=== PATIENT | male | born 1955 | race Caucasian/White ===

== ENCOUNTER 2019-09-25 03:41 | Emergency (ER) | payer MEDICARE, SELFPAY ==
[2019-09-25 03:41] VITALS: BP 161/97; PULSE 73; RESP 18; TEMP 36.6; O2SAT 100
--- NOTE | 2019-09-25 03:58 | ED.GENADULT ---
HPI - General Adult General Chief complaint: Allergic Reaction Stated complaint: throught swelling Source: patient Mode of arrival: ambulatory History of Present Illness HPI narrative: Tarik is a very pleasant 64-year-old man that presented to the ER with tongue swelling. 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 Multiple times here he succumbed to the hospital to get IM steroids and Benadryl which has always worked in the past. Around 12 or 1 he started developing some tongue swelling and itching. He tried to take Benadryl at home but he could not take much because the swelling continued. He can't take Benadryl because of swollen tongue is not able to follow-up pills. He admits the dysphaga and some SOB from this but no chest pain, N/V/D, syncope or other symptoms. MD complaint: Tongue swelling Related Data Home Medications Medication Instructions Recorded Confirmed hydrochlorothiazide 12.5 mg PO DAILY 09/25/19 09/25/19 losartan 50 mg PO DAILY 09/25/19 09/25/19 Allergies Allergy/AdvReac Type Severity Reaction Status Date / Time amlodipine [Norvasc] Allergy Intermediate Unknown Verified 07/14/19 17:19 Penicillins Allergy Unknown Verified 07/14/19 17:19 Review of Systems Constitutional: Constitutional: Denies chills and Denies fever(s) Eyes: Eyes: Denies change in vision ENT: Denies vertigo and Denies dizziness Cardiovascular: Cardiovascular: Denies chest pain with activity, Denies syncope, Denies edema and Denies dyspnea on exertion Gastrointestinal: Gastrointestinal: Denies abdominal pain, Denies diarrhea, Denies nausea and Denies vomiting Genitourinary: Genitourinary: Denies dysuria Musculoskeletal: Musculoskeletal: Denies deformity Neurologic: Denies Normal hearing present, Denies behavioral changes, Denies confusion, Denies vertigo, Denies dizziness, Denies syncope and Denies loss of vision Psychiatric: Psychiatric: Denies anxiety, Denies behavioral changes, Denies confusion and Denies depression Endocrine: Endocrine: Reports no additional endocrine complaints Hematologic/Lymphatic: Hematologic/Lymphatic: Reports no additional hematologic/lymphatic complaints Allergic/Immunologic: Allergic/Immunologic: Reports no additional allergic/immunologic complaints PMFSH Family History Family History Father Hypertension Family history of chronic obstructive pulmonary disease Family history of emphysema Family history of heart disease in male family member before age 55 Mother Family history of malignant neoplasm Other Cerebrovascular accident Family history of allergic disorder Family history of kidney disease Social History Social History Smoking status: Never smoker Alcohol intake: never Exam Const: General: no acute distress and alert Orientation/consciousness: patient oriented x3 HENMT: Other: normocephalic, atraumatic, mild angioedema of the tongue that is symmetrical. Eyes: Conjunctivae: conjunctivae normal Pupils: Equal, round and reactive pupils present Neck: Neck: normal visual inspection Resp: Effort & Inspection: normal respiratory effort Auscultation: clear to auscultation bilaterally Cardio: Rate: regular rate Rhythm: regular rhythm Heart sounds: no murmurs GI: GI Palp: Yes Soft to palpation, No Tenderness to palpation present (GI) and No Guarding due to palpation present (GI) Skin: General skin exam: normal color Rashes: no rashes Other: no swelling in and Neuro: General: patient oriented x3 and moves all extremities Extrem: General: normal to inspection Psych: Mental Status: mental status grossly normal Course Course Emergency Course: Tarki was seen and evaluated. As his angioedema his previously responded to IM Solu-Medrol and Benadryl this was ordered. He reports he has done well without epinephrine pas
[2019-09-25] MEDS: methylPREDNISolone SOD SUCC 125 MG VIAL IM (04:11)
[2019-09-25 04:35] VITALS: PULSE 58; RESP 20; O2SAT 96
[2019-09-25 04:48] VITALS: PULSE 68; RESP 18; O2SAT 96
[2019-09-25 05:11] VITALS: BP 134/74; PULSE 61; RESP 20; O2SAT 98
[2019-09-25] MEDS: FAMOTIDINE 20 MG TABLET PO (05:25)
[2019-09-25 05:40] VITALS: BP 153/87; PULSE 56; RESP 20; O2SAT 98
== END 2019-09-25 05:46 | disposition home or self-care (01) ==
PROVIDERS: Emergency Provider Family Medicine; PCP Family Medicine
DX: T78.3XXA Angioneurotic edema, initial encounter (principal)
CPT/HCPCS: 96372; 99283; 99284; A9270; J1200; J2930

== ENCOUNTER 2020-03-01 09:17 | Outpatient (CLI) | payer MEDICARE, SELFPAY ==
[2020-03-01 09:30] LABS: Hematocrit 45.8 % (40.0-54.0); Hemoglobin 15.7 g/dL (14.0-18.0); Mean Corpuscular HGB Conc 34.3 g/dL (32.0-36.0); Mean Corpuscular Hemoglobin 29.4 pg (27.0-31.0); Mean Corpuscular Volume 85.8 fL (78.0-102.0); Platelet Count Result 353 K/mm3 (150-420); Red Blood Count 5.34 M/mm3 (4.70-6.10); Red Cell Distribution Width 12.7 % (11.6-14.4); White Blood Count 8.4 K/mm3 (4.8-10.8)
[2020-03-01 10:05] LABS: Alanine Aminotransferase 24 U/L (16-63); Albumin Level 3.7 g/dL (3.4-5.0); Alkaline Phosphatase 89 U/L (46-116); Anion Gap 12.9 mmol/L (7-16); Aspartate Amino Transferase 20 U/L (15-37); Bilirubin,Total 0.5 mg/dL (0.00-1.00); Blood Urea Nitrogen 14 mg/dL (7-18); Carbon Dioxide 27 mmol/L (21-32); Chloride 101 mmol/L (98-108); Cholesterol 185 mg/dL (0-200); Estimated Glomerular Filt Rate 57; Glucose 91 mg/dL (70-99); HDL Direct 41 mg/dL (40-60); LDL Cholesterol Calculated 107 mg/dL (<130); Osmolality Calculated 284 mOsm/kg (285-295); Potassium 3.9 mmol/L (3.5-5.1); Sodium 137 mmol/L (136-145); Total Protein 7.1 g/dL (6.4-8.2); Triglycerides 186 mg/dL (0-150)
== END 2020-03-01 09:18 | disposition home or self-care (01) ==
LOC: CHSLAB 09:21
PROVIDERS: PCP Family Medicine; Visit Provider Family Medicine
DX: I10 Essential (primary) hypertension (principal)
CPT/HCPCS: 36415; 80053; 80061; 85027

== ENCOUNTER 2020-06-06 06:23 | Emergency (ER) | payer MEDICARE, SELFPAY ==
[2020-06-06 06:25] VITALS: BP 178/95; PULSE 70; RESP 20; TEMP 36.2; O2SAT 98
[2020-06-06] MEDS: methylPREDNISolone SOD SUCC 125 MG VIAL IV PUSH (06:45)
--- NOTE | 2020-06-06 06:47 | ED.GENADULT ---
HPI - General Adult General Chief complaint: Allergic Reaction Stated complaint: Sore throat Source: patient Mode of arrival: ambulatory Limitations: no limitations History of Present Illness HPI narrative: Tarik is a 65M with a PMH of angioedema that presented to clinic with tongue swelling. He has a history of tongue swelling and idiopathic edema since 1990. This episode started yesterday. He has been taking a lot of OTC generic benadryl that was holding it at bay but he bit his tongue. It started to swell worse so he took 4 pills of generic Benadryl. He thinks it is starting to get better but he was concerned so he came in just to be safe. Symptoms are accompanied by an itchy scratchy throat. He denies SOB, wheezing, chest pain and like he is about to pass out. Related Data Home Medications Medication Instructions Recorded Confirmed hydrochlorothiazide 12.5 mg PO DAILY 06/06/20 06/06/20 Allergies Allergy/AdvReac Type Severity Reaction Status Date / Time amlodipine [Norvasc] Allergy Intermediate Unknown Verified 03/01/20 06:52 Penicillins Allergy Unknown Verified 03/01/20 06:52 Review of Systems Constitutional: Constitutional: Denies chills, Denies fever(s) and Denies weakness Eyes: Eyes: Reports no additional eye complaints ENT: Reports as per HPI Cardiovascular: Cardiovascular: Reports no additional cardiovascular complaints Respiratory: Respiratory: Reports as per HPI Gastrointestinal: Gastrointestinal: Reports no additional gastrointestinal complaints Genitourinary: Genitourinary: Reports no additional male genitourinary complaints Musculoskeletal: Musculoskeletal: Reports no additional musculoskeletal complaints Integumentary/Breasts: Skin/Breast: Reports system reviewed and no additional complaints, except as docu Psychiatric: Psychiatric: Reports no additional psychiatric complaints Endocrine: Endocrine: Reports no additional endocrine complaints Hematologic/Lymphatic: Hematologic/Lymphatic: Reports no additional hematologic/lymphatic complaints Allergic/Immunologic: Allergic/Immunologic: Reports no additional allergic/immunologic complaints [facility] Past Medical History Medical History (Updated 06/06/20 @ 07:10 by Cooper Romero DO) GERD (gastroesophageal reflux disease) Hypertension Overweight Surgical History Surgical History History of aortic aneurysm repair History of cholecystectomy History of rotator cuff surgery Family History Family History Father No problems noted. Mother No problems noted. Social History Social History Smoking status: Never smoker Alcohol intake: never Exam Const: General: no acute distress and alert Orientation/consciousness: patient oriented x3 Limitations: No altered mental status HENMT: Other: normocephalic, atraumatic. Moist mucous membranes. Had significantly enlarged tongue but was able to breath and speak without difficulty. Eyes: Conjunctivae: conjunctivae normal Pupils: Equal, round and reactive pupils present Neck: Neck: normal visual inspection Chest: Chest palpation & inspection: normal inspection of the chest Resp: Effort & Inspection: normal respiratory effort, not labored, no retractions, not tachypneic and no use of accessory muscles Auscultation: clear to auscultation bilaterally Cardio: Rate: regular rate Rhythm: regular rhythm Heart sounds: no murmurs GI: GI Palp: Yes Soft to palpation, No Tenderness to palpation present (GI) and No Guarding due to palpation present (GI) : Testes: Testes normal Skin: General skin exam: normal color Rashes: no rashes Neuro: General: patient oriented x3 and moves all extremities Extrem: General: normal to inspection Psych: Mental Status: mental status grossly normal Course Course
[2020-06-06] MEDS: FAMOTIDINE 20 MG/ISO 50 ML 20 MG/50 ML BAG 400 MG (07:00)
[2020-06-06 07:45] VITALS: BP 178/95; PULSE 72; RESP 20; O2SAT 98
== END 2020-06-06 07:50 | disposition home or self-care (01) ==
PROVIDERS: Emergency Provider Family Medicine; PCP Family Medicine
DX: T78.3XXA Angioneurotic edema, initial encounter (principal)
CPT/HCPCS: 96365; 96375; 99283; 99284; J2930

== ENCOUNTER 2020-08-09 09:54 | Outpatient (CLI) | payer MEDICARE, SELFPAY ==
[2020-08-09 10:46] LABS: SARS-CoV-2 Ag Positive (Negative)
== END 2020-08-09 09:55 | disposition home or self-care (01) ==
LOC: CHSLAB 09:57
PROVIDERS: PCP Family Medicine; Visit Provider Family Medicine
DX: U07.1 COVID-19 (principal)
CPT/HCPCS: 87426

== ENCOUNTER 2020-12-06 11:45 | Emergency (ER) | payer MEDICARE, SELFPAY ==
[2020-12-06] MEDS: DEXAMETHASONE SOD PHOS INJ 4 MG/ML VIAL 10 MG IV PUSH (12:14)
[2020-12-06] MEDS: FAMOTIDINE 20 MG/2 ML VIAL 40 MG IV PUSH (12:14)
[2020-12-06 12:16] VITALS: BP 170/77; PULSE 70; RESP 20; TEMP 36.7; O2SAT 98
[2020-12-06] MEDS: diphenhydrAMINE HCl INJ 50 MG/ML VIAL IV PUSH (12:30)
[2020-12-06 13:14] VITALS: BP 153/78; PULSE 65; RESP 18; O2SAT 98
--- NOTE | 2020-12-06 13:18 | ED.ALLEREA ---
HPI - Allergic Reaction General Chief complaint: Allergic Reaction Stated complaint: tongue and throat swelling Time Seen by Provider: 12/06/20 12:25 Source: patient Mode of arrival: ambulatory Limitations: no limitations History of Present Illness HPI narrative: Patient comes in with swelling in his tongue. HE states this started this am while he was in the doctors office. He states he took benadryl last pm for some swelling but has not taken any this am. Swelling in tongue is on left side, moderately severe, and ongoing. He comes in due to difficulty talking, and because he is afraid it will get worse. Onset (ago): hour(s) Exposure: unknown Symptoms: tongue swelling Severity: moderate Treatment prior to arrival: none Previous Allergic Reaction History: prior ED visit(s) (multiple visits in the past for similar episodes) Related Data Home Medications Medication Instructions Recorded Confirmed hydrochlorothiazide 12.5 mg PO DAILY 06/06/20 12/06/20 Allergies Allergy/AdvReac Type Severity Reaction Status Date / Time amlodipine [Norvasc] Allergy Intermediate Unknown Verified 12/06/20 15:12 Penicillins Allergy Unknown Verified 12/06/20 15:12 Review of Systems Constitutional: Constitutional: Reports no additional constitutional complaints Eyes: Eyes: Reports no additional eye complaints ENT: Reports system reviewed and no additional complaints, except as documented Cardiovascular: Cardiovascular: Reports no additional cardiovascular complaints Respiratory: Respiratory: Reports no additional respiratory complaints Gastrointestinal: Gastrointestinal: Reports no additional gastrointestinal complaints Genitourinary: Genitourinary: Reports no additional male genitourinary complaints Musculoskeletal: Musculoskeletal: Reports no additional musculoskeletal complaints Integumentary/Breasts: Skin/Breast: Reports system reviewed and no additional complaints, except as docu Neurologic: Reports system reviewed and no additional complaints, except as documented Psychiatric: Psychiatric: Reports no additional psychiatric complaints Endocrine: Endocrine: Reports no additional endocrine complaints Hematologic/Lymphatic: Hematologic/Lymphatic: Reports no additional hematologic/lymphatic complaints Allergic/Immunologic: Allergic/Immunologic: Reports no additional allergic/immunologic complaints [facility] Past Medical History Medical History Angioedema GERD (gastroesophageal reflux disease) Hypertension Overweight Surgical History Surgical History History of aortic aneurysm repair History of cholecystectomy History of rotator cuff surgery Family History Family History Father No problems noted. Mother No problems noted. Social History Social History Smoking status: Never smoker Alcohol intake: never Exam Const: General: no acute distress Orientation/consciousness: patient oriented x3 HENMT: Head: normal to inspection Ears: external ears normal General nose exam: Normal external nose present Mouth: Yes Abnormal oral and palatal mucosa present Throat: posterior oropharynx normal Eyes: Conjunctivae: conjunctivae normal EOM: EOMs intact bilaterally Neck: Neck: normal visual inspection and no lymphadenopathy Chest: Chest palpation & inspection: normal inspection of the chest Resp: Effort & Inspection: normal respiratory effort Auscultation: clear to auscultation bilaterally Cardio: Rate: regular rate Rhythm: regular rhythm GI: GI Palp: Yes Soft to palpation (non tender, no edema) Skin: General skin exam: normal color Neuro: General: patient oriented x3, moves all extremities, no meningeal signs and no focal motor deficits Gait exam (Neuro): Normal gait present Extrem: G
[2020-12-06 14:00] VITALS: BP 137/88; PULSE 65; RESP 18; O2SAT 98
--- NOTE | 2020-12-06 14:00 | PC.NURSE ---
Pt states he is feeling better and his swelling has decreased.
[2020-12-06 14:57] VITALS: BP 148/79; PULSE 74; RESP 18; TEMP 36.6; O2SAT 98
--- NOTE | 2020-12-07 06:21 | ED.ALLEREA ---
HPI - Allergic Reaction General Chief complaint: Allergic Reaction Stated complaint: tongue and throat swelling Time Seen by Provider: 12/06/20 12:25 Source: patient Mode of arrival: ambulatory Limitations: no limitations History of Present Illness HPI narrative: Patient comes in with swollen left tongue which he says happens frequently. He requests Benadryl IV. He is having no difficulty breathing. No shortness of breath. No known event causing this. No other signs and symptoms. MD complaint: allergic reaction Onset (ago): minute(s) Symptoms: facial swelling Severity: moderate Treatment prior to arrival: benadryl Related Data Home Medications Medication Instructions Recorded Confirmed hydrochlorothiazide 12.5 mg PO DAILY 06/06/20 12/06/20 Allergies Allergy/AdvReac Type Severity Reaction Status Date / Time amlodipine [Norvasc] Allergy Intermediate Unknown Verified 12/06/20 15:12 Penicillins Allergy Unknown Verified 12/06/20 15:12 Review of Systems Constitutional: Constitutional: Reports no additional constitutional complaints Eyes: Eyes: Reports no additional eye complaints ENT: Reports system reviewed and no additional complaints, except as documented Cardiovascular: Cardiovascular: Reports no additional cardiovascular complaints Respiratory: Respiratory: Reports no additional respiratory complaints Gastrointestinal: Gastrointestinal: Reports no additional gastrointestinal complaints Genitourinary: Genitourinary: Reports no additional male genitourinary complaints Musculoskeletal: Musculoskeletal: Reports no additional musculoskeletal complaints Integumentary/Breasts: Skin/Breast: Reports system reviewed and no additional complaints, except as docu Neurologic: Reports system reviewed and no additional complaints, except as documented Psychiatric: Psychiatric: Reports no additional psychiatric complaints Endocrine: Endocrine: Reports no additional endocrine complaints [facility] Past Medical History Medical History Angioedema GERD (gastroesophageal reflux disease) Hypertension Overweight Surgical History Surgical History History of aortic aneurysm repair History of cholecystectomy History of rotator cuff surgery Family History Family History Father No problems noted. Mother No problems noted. Social History Social History Smoking status: Never smoker Alcohol intake: never Exam Const: General: no acute distress and alert Orientation/consciousness: patient oriented x3 HENMT: Ears: external ears normal General nose exam: Normal external nose present and Normal nares present Throat: posterior oropharynx normal Other: left side of tongue significantly swollen, and some of left face swollen Eyes: Conjunctivae: conjunctivae normal Neck: Neck: normal visual inspection Chest: Chest palpation & inspection: normal inspection of the chest Resp: Effort & Inspection: normal respiratory effort Auscultation: clear to auscultation bilaterally Cardio: Rate: regular rate Rhythm: regular rhythm GI: GI Palp: Yes Soft to palpation (nontender) Skin: General skin exam: normal color Rashes: no rashes Neuro: General: patient oriented x3 and moves all extremities Extrem: General: normal to inspection Psych: Appearance: grossly normal Affect: normal affect Thought content: Yes Normal thought content present Course Course Emergency Course: He refused steroids and epinephrine. He was given benadryl 50mg IV and pepcid 40mg po. Discussed with Dr Romero After a few minutes he was improving and was discharged Vital Signs Vital signs: Vital Signs Temperature 36.7 C 12/06/20 12:16 Pulse Rate 70 12/06/20 12:16 Respiratory Rate 20 12/06/20 12:16 Bloo
[2020-12-09 14:40] LABS: Complement Total CH50 >60 U/mL (31-60)
[2020-12-10 05:32] LABS: C1 Esterase Inhibitor 97 % (>=68)
[2020-12-10 10:58] LABS: Complement C3 173 mg/dL (82-185)
== END 2020-12-06 14:59 | disposition home or self-care (01) ==
PROVIDERS: Emergency Provider Emergency Medicine; PCP Family Medicine
DX: T78.3XXA Angioneurotic edema, initial encounter (principal)
CPT/HCPCS: 36415; 86160; 86162; 96374; 96375; 99283; 99284; J1100; J1200

== ENCOUNTER 2020-12-06 16:33 | Outpatient (NON) | payer MEDICARE, SELFPAY | END 2020-12-06 16:34 | disposition home or self-care (01) | LOC: CHSLAB 16:34 | PROVIDERS: PCP Family Medicine; Visit Provider Family Medicine | DX: C44.529 Squamous cell carcinoma of skin of other part of trunk (principal); L82.1 Other seborrheic keratosis | CPT/HCPCS: 88305 ==

== ENCOUNTER 2021-03-09 09:25 | Outpatient (CLI) | payer MEDICARE, SELFPAY ==
[2021-03-09 09:35] LABS: Hematocrit 48.5 % (40.0-54.0); Hemoglobin 16.6 g/dL (14.0-18.0); Mean Corpuscular HGB Conc 34.2 g/dL (32.0-36.0); Mean Corpuscular Hemoglobin 29.4 pg (27.0-31.0); Mean Platelet Volume 9.1 fl (8.7-11.0); Platelet Count Result 364 K/mm3 (150-420); Red Blood Count 5.64 M/mm3 (4.70-6.10); Red Cell Distribution Width 13.1 % (11.6-14.4)
[2021-03-09 10:27] LABS: Alanine Aminotransferase 23 U/L (16-63); Albumin Level 3.8 g/dL (3.4-5.0); Alkaline Phosphatase 96 U/L (46-116); Anion Gap 15 mmol/L (8-16); Aspartate Amino Transferase 14 U/L (15-37); Bilirubin,Total 0.6 mg/dL (0.00-1.00); Blood Urea Nitrogen 13 mg/dL (7-18); Calcium 9.1 mg/dL (8.5-10.1); Carbon Dioxide 23 mmol/L (21-32); Chloride 102 mmol/L (98-108); Cholesterol 195 mg/dL (0-200); Estimated Glomerular Filt Rate > 60; Glucose 90 mg/dL (70-99); HDL Direct 43 mg/dL (40-60); LDL Cholesterol Calculated 124 mg/dL (<130); Osmolality Calculated 290 mOsm/kg (285-295); Potassium 4.1 mmol/L (3.5-5.1); Sodium 140 mmol/L (136-145); Total Protein 7.1 g/dL (6.4-8.2); Triglycerides 141 mg/dL (0-150)
== END 2021-03-09 09:26 | disposition home or self-care (01) ==
LOC: CHSLAB 09:27
PROVIDERS: PCP Family Medicine; Visit Provider Family Medicine
DX: I10 Essential (primary) hypertension (principal)
CPT/HCPCS: 36415; 80053; 80061; 85027

== ENCOUNTER 2021-03-29 13:36 | Outpatient (CLI) | payer MEDICARE, SELFPAY ==
--- NOTE | ~2021-03-29 | XR_ITS ---
EXAMINATION: XR hand BI arthritis min 3V DATE: 03/29/2021 14:03 INDICATION: Bilateral hand pain. TECHNIQUE: 4 views of right hand and 4 views of left hand on 7 radiographs were obtained. COMPARISON: None. FINDINGS: RIGHT HAND: Bone alignment is normal. No acute fracture. There is an old healed fracture of neck of f ifth metacarpal. There is mild osteoarthritis of triscaphe joint and first, third, and fourth metacar pophalangeal joints, LEFT HAND: There is radial subluxation of third distal phalanx with respect to the middle phalanx. No fracture. There is mild osteoarthritis of triscaphe joint, first and second metacarpophalangeal join ts, and fifth distal interphalangeal joint. There is moderate osteoarthritis of third distal interpha langeal joint. IMPRESSION: 1. Polyarticular osteoarthritis. Reviewed, dictated and finalized at location A.
[2021-03-29 14:25] LABS: CRP 1.6 mg/dL (0.0-0.9)
[2021-03-29 14:34] LABS: RFT Charge Test YES; Rheumatoid Factor Screen Positive (Negative)
[2021-03-29 15:09] LABS: Erythrocyte Sedimentation Rate 10 mm/hr (0-20)
[2021-04-02 10:51] LABS: ANA Cascade Screen Negative (Negative)
== END 2021-03-29 13:37 | disposition home or self-care (01) ==
LOC: CHSLAB 13:40
PROVIDERS: PCP Family Medicine; Visit Provider Family Medicine
DX: M79.641 Pain in right hand (principal); M79.642 Pain in left hand
CPT/HCPCS: 36415; 73130; 85652; 86038; 86140; 86430; 86431

== ENCOUNTER 2021-04-05 03:34 | Emergency (ER) | payer MEDICARE, SELFPAY ==
[2021-04-05 03:34] VITALS: BP 161/78; PULSE 63; RESP 20; TEMP 36.3; O2SAT 97
--- NOTE | 2021-04-05 03:41 | ED.ALLEREA ---
HPI - Allergic Reaction General Chief complaint: Dental/Oral Stated complaint: Swollen tongue Time Seen by Provider: 04/05/21 03:41 Source: patient Mode of arrival: ambulatory Limitations: no limitations History of Present Illness HPI narrative: 65-year-old man with a history of idiopathic angioedema comes into the emergency department today complaining of swelling of his tongue and face. Patient states this started about 9:00 p.m.. He has taken 50 mg doses of Benadryl 3 times since the onset. He states the swelling around his right has improved somewhat. He denies chest pain, shortness breath, wheezing, vomiting or swelling other than his face and mouth. MD complaint: facial swelling Onset (ago): hour(s) (6) Exposure: unknown Symptoms: facial swelling and tongue swelling Severity: moderate Treatment prior to arrival: benadryl Previous Allergic Reaction History: prior ED visit(s) and angioedema Related Data Allergies Allergy/AdvReac Type Severity Reaction Status Date / Time amlodipine [Norvasc] Allergy Intermediate Unknown Verified 03/29/21 08:20 Penicillins Allergy Unknown Verified 03/29/21 08:20 Review of Systems Review of Systems: All systems reviewed & are unremarkable except as noted in HPI and below Constitutional: Constitutional: Denies chills and Denies fever(s) Eyes: Eyes: Denies change in vision and Denies photophobia ENT: Denies dysphagia, Denies epistaxis, Denies nasal congestion and Denies sore throat Cardiovascular: Cardiovascular: Denies chest pain and Denies radiating jaw, neck or arm pain Respiratory: Respiratory: Denies cough, Denies dyspnea and Denies wheezing Gastrointestinal: Gastrointestinal: Denies abdominal pain, Denies nausea and Denies vomiting Genitourinary: Genitourinary: Denies hematuria, Denies dysuria and Denies urinary frequency Musculoskeletal: Musculoskeletal: Denies back pain, Denies arthralgias and Denies joint swelling Integumentary/Breasts: Skin/Breast: Denies pruritus, Denies erythema and Denies rash Neurologic: Denies vertigo, Denies dizziness, Denies syncope, Denies focal weakness and Denies numbness Hematologic/Lymphatic: Hematologic/Lymphatic: Denies easy bleeding and Denies easy bruising Allergic/Immunologic: Allergic/Immunologic: Reports lip swelling, Denies throat swelling, Reports tongue swelling and Denies wheezing PMF Past Medical History Medical History Angioedema GERD (gastroesophageal reflux disease) Hypertension Overweight Surgical History Surgical History History of aortic aneurysm repair History of cholecystectomy History of rotator cuff surgery Family History Family History Father No problems noted. Mother No problems noted. Social History Social History Smoking status: Never smoker Alcohol intake: never Exam Const: General: healthy appearing and alert Orientation/consciousness: patient oriented x3 Limitations: no limitations Other: Mild acute distress. HENMT: Ears: TM's normal bilaterally and EAC's normal General nose exam: Normal nares present Mouth: Yes moist mucous membranes Throat: posterior oropharynx normal Other: Edematous swelling of the right periorbital area without erythema. Is also tongue swelling without erythema. Eyes: Conjunctivae: conjunctivae normal Pupils: Equal, round and reactive pupils present EOM: EOMs intact bilaterally Neck: Neck: normal visual inspection Resp: Effort & Inspection: normal respiratory effort and not labored Auscultation: clear to auscultation bilaterally, no rales, no rhonchi and no wheezes Cardio: Rate: regular rate Rhythm: regular rhythm Heart sounds: no murmurs Skin: General skin exam: normal color, no jaundice and no pallor Rashes: no r
[2021-04-05] MEDS: methylPREDNISolone SOD SUCC 125 MG VIAL IV PUSH (03:54)
--- NOTE | 2021-04-05 04:51 | PC.NURSE ---
pt sleeping, resp even and unlabored. left undisturbed.
--- NOTE | 2021-04-05 05:11 | PC.NURSE ---
pt awake, states tongue is much better. erp notified. continue to observe per dr treviño
[2021-04-05 05:22] VITALS: BP 137/76; PULSE 56; RESP 20; TEMP 36.9; O2SAT 97
== END 2021-04-05 05:27 | disposition home or self-care (01) ==
PROVIDERS: Emergency Provider Emergency Medicine; PCP Family Medicine
DX: T78.3XXA Angioneurotic edema, initial encounter (principal)
CPT/HCPCS: 96374; 99283; 99284; J2930

== ENCOUNTER 2021-05-25 13:47 | Emergency (ER) | payer MEDICARE, SELFPAY ==
[2021-05-25 14:04] VITALS: BP 184/77; PULSE 67; RESP 16; TEMP 36.6; O2SAT 99
[2021-05-25] MEDS: diphenhydrAMINE HCl INJ 50 MG/ML VIAL IV PUSH (14:14)
[2021-05-25] MEDS: methylPREDNISolone SOD SUCC 125 MG VIAL IV PUSH (14:16)
--- NOTE | 2021-05-25 14:36 | PCDIET ---
Pt reports doing ok. Denies any difficulty breathing or distress. Will continue to monitor.
--- NOTE | 2021-05-25 14:43 | ED.GENADULT ---
HPI - General Adult General Chief complaint: Dental/Oral Stated complaint: swollen tongue Source: patient Mode of arrival: ambulatory Limitations: no limitations History of Present Illness HPI narrative: pt has had swollen tounge today. He has had this intermittantly since 1990. He said its pretty early today, and not that bad, but he knows to come in early now. he doesnt know his trigger, but is very versed in these. Onset (ago): hour(s) Location: face (tounge) Radiation: non-radiation Severity: moderate Relieving factors: none Exacerbating factors: none Associated symptoms: denies other symptoms Treatments prior to arrival: none Related Data Home Medications Medication Instructions Recorded Confirmed hydrochlorothiazide 12.5 mg PO DAILY 05/25/21 05/25/21 losartan 50 mg PO DAILY 05/25/21 05/25/21 Allergies Allergy/AdvReac Type Severity Reaction Status Date / Time No Known Allergies Allergy Verified 05/25/21 14:03 Review of Systems Review of Systems: All systems reviewed & are unremarkable except as noted in HPI and below PMFSH Past Medical History Medical History Angioedema GERD (gastroesophageal reflux disease) Hypertension Overweight Surgical History Surgical History History of aortic aneurysm repair History of cholecystectomy History of rotator cuff surgery Family History Family History Father No problems noted. Mother No problems noted. Social History Social History Smoking status: Never smoker Alcohol intake: never Exam Const: General: no acute distress and alert Nutritional Appearance: well nourished Orientation/consciousness: patient oriented x3 HENMT: Mouth: Yes Normal oral and palatal mucosa present (tounge swollen, on tip and right side) and Yes lip normal Throat: posterior oropharynx normal and uvula midline Eyes: Conjunctivae: conjunctivae normal Pupils: Equal, round and reactive pupils present Neck: Neck: normal visual inspection Chest: Chest palpation & inspection: normal inspection of the chest Resp: Effort & Inspection: normal respiratory effort Auscultation: clear to auscultation bilaterally Cardio: Rate: regular rate Rhythm: regular rhythm GI: GI Palp: Yes Soft to palpation and Yes Tenderness to palpation present (GI) : Testes: Testes normal Back/Spine/Pelvis: Back: no CVA tenderness Skin: General skin exam: normal color Neuro: General: patient oriented x3 and moves all extremities Extrem: General: normal to inspection Psych: Appearance: grossly normal Mental Status: mental status grossly normal Course Vital Signs Vital signs: Vital Signs Temperature 36.6 C 05/25/21 14:04 Pulse Rate 67 05/25/21 14:04 Respiratory Rate 16 05/25/21 14:04 Blood Pressure 184/77 H 05/25/21 14:04 Pulse Oximetry 99 05/25/21 14:04 Temperature 36.6 C 05/25/21 14:04 Pulse Rate 64 05/25/21 16:35 Respiratory Rate 16 05/25/21 16:35 Blood Pressure 138/71 05/25/21 16:35 Pulse Oximetry 96 05/25/21 16:35 Medical Decision Making Vital Signs Vital Signs: Vital Signs Temperature 36.6 C 05/25/21 14:04 Pulse Rate 67 05/25/21 14:04 Respiratory Rate 16 05/25/21 14:04 Blood Pressure 184/77 H 05/25/21 14:04 Pulse Oximetry 99 05/25/21 14:04 Temperature 36.6 C 05/25/21 14:04 Pulse Rate 64 05/25/21 16:35 Respiratory Rate 16 05/25/21 16:35 Blood Pressure 138/71 05/25/21 16:35 Pulse Oximetry 96 05/25/21 16:35 Critical Care Time Critical Care Time Critical Care Time: No Discharge Plan Discharge Clinical Impression: Idiopathic angioedema Qualifiers: Encounter type: initial encounter Qualified Code(s): T78.3XXA - Angioneurotic edema, initial e
--- NOTE | 2021-05-25 15:28 | PC.NURSE ---
Pt reports no better but no worse. No acute distress noted. Will continue to monitor.
[2021-05-25 16:35] VITALS: BP 138/71; PULSE 64; RESP 16; O2SAT 96
--- NOTE | 2021-05-25 16:35 | PC.NURSE ---
Pt resting comfortably at this time. States he is feeling better and ready to go home. Dr. Luna notified.
== END 2021-05-25 17:07 | disposition home or self-care (01) ==
PROVIDERS: Emergency Provider Emergency Medicine; PCP Family Medicine
DX: T78.3XXA Angioneurotic edema, initial encounter (principal); K21.9 Gastro-esophageal reflux disease without esophagitis; I10 Essential (primary) hypertension
CPT/HCPCS: 96374; 96375; 99283; 99284; J1200; J2930

== ENCOUNTER 2022-04-16 09:54 | Emergency (ER) | payer MEDICARE, SELFPAY ==
[2022-04-16 09:54] VITALS: BP 154/91; PULSE 70; RESP 20; TEMP 36.9; O2SAT 98
--- NOTE | 2022-04-16 09:57 | ECG_ITS ---
Measurements Intervals [place] Rate: 71 P: 42 [place]: 192 QRS: -21 QRSD: 112 T: 28 QT: 406 QTc: 441 Interpretive Statements SINUS RHYTHM BORDERLINE LEFT AXIS DEVIATION [QRS AXIS < -20] MODERATE INTRAVENTRICULAR CONDUCTION DELAY [110+ ms QRS DURATION] ABNORMAL ECG NO PREVIOUS ECG AVAILABLE FOR COMPARISON Electronically Signed On 04-16-2022 12:19:32 CDT by Ramon Crockett M.D.
--- NOTE | 2022-04-16 10:11 | ED.GENADULT ---
HPI - General Adult General Chief complaint: Arrhythmia/Palpitations Stated complaint: heart beating rapidly Time Seen by Provider: 04/16/22 09:57 History of Present Illness HPI narrative: Tarik is a 66M with a PMH of RA, Peyronie's, GERD, HTN and idiopathic angioedema that presented to the ED with concerns of palpitations. They woke him up at early this morning but went away. They returned when he started to mow the lawn. They stopped just before walking into the hospital. They were accompanied by lightheadedness and flushing. There is no true CP, syncope, or vomiting. Related Data Allergies Allergy/AdvReac Type Severity Reaction Status Date / Time No Known Allergies Allergy Verified 01/19/22 07:35 Review of Systems Review of Systems: All systems reviewed & are unremarkable except as noted in HPI and below PMFSH Past Medical History Medical History Angioedema GERD (gastroesophageal reflux disease) Hypertension Overweight Surgical History Surgical History History of aortic aneurysm repair History of cholecystectomy History of rotator cuff surgery Family History Family History Father No problems noted. Mother No problems noted. Social History Social History Smoking status: Never smoker Alcohol intake: never Exam Const: General: healthy appearing and no acute distress Nutritional Appearance: well nourished Orientation/consciousness: patient oriented x3 HENMT: Head: normal to inspection Ears: external ears normal Eyes: Conjunctivae: conjunctivae normal Pupils: Equal, round and reactive pupils present Neck: Neck: normal visual inspection Chest: Chest palpation & inspection: normal inspection of the chest Resp: Effort & Inspection: normal respiratory effort Auscultation: clear to auscultation bilaterally Cardio: Rate: regular rate Rhythm: regular rhythm Heart sounds: no murmurs GI: Inspection: distended Skin: General skin exam: normal color Neuro: General: patient oriented x3 and moves all extremities Psych: Mental Status: mental status grossly normal Course Course Emergency Course: Symptoms resolved before coming into the ED. Ordered labs and EKG that showed NSR with a rate of 71, borderline LAD and Qtc of 428 Troponin came back elevated at 70.1. Aspirin and a heparin drop was started. As Dr. Hu is his waste collector [facility] was contacted at [phone]. Dr. Knott of cardiology called back. He recommended Lovenox over heparin and accepted the transfer as a consult. Dr. Wallace called back at [phone] and accepted the patient to the hospitalist service to a [facility] bed Tarik was transferred to [facility] for cardiology and a higher level of care Vital Signs Vital signs: Vital Signs Temperature 98.4 F 04/16/22 09:54 Pulse Rate 70 04/16/22 09:54 Respiratory Rate 20 04/16/22 09:54 Blood Pressure 154/91 H 04/16/22 09:54 Pulse Oximetry 98 04/16/22 09:54 Oxygen Delivery Room Air 04/16/22 09:54 Temperature 97.8 F 04/16/22 12:35 Pulse Rate 78 04/16/22 13:25 Respiratory Rate 20 04/16/22 13:25 Blood Pressure 134/78 04/16/22 13:25 Pulse Oximetry 20 L 04/16/22 13:25 Oxygen Delivery Room Air 04/16/22 13:25 Medical Decision Making Vital Signs Vital Signs: Vital Signs Temperature 98.4 F 04/16/22 09:54 Pulse Rate 70 04/16/22 09:54 Respiratory Rate 20 04/16/22 09:54 Blood Pressure 154/91 H 04/16/22 09:54 Pulse Oximetry 98 04/16/22 09:54 Oxygen Delivery Room Air 04/16/22 09:54 Temperature 97.8 F 04/16/22 12:35 Pulse Rate 78 04/16/22 13:25 Respiratory Rate 20 04/16/22 13:25 Blood Pressure 134/78 04/16/22 13:25 Pulse Oximetry 20 L 04/16/22 13:25 Oxygen Deliver
[2022-04-16 10:25] LABS: Basophils Absolute Auto 0.02 K/mm3 (0.00-0.10); Basophils Percent Auto 0.3 % (0.0-1.0); Eosinophils Absolute Auto 0.15 K/mm3 (0.02-0.50); Hematocrit 45.2 % (37.0-46.0); Hemoglobin 15.3 g/dL (12.4-15.3); Immature Granulocyte Absolute 0.02 K/mm3 (0.00-0.00); Immature Granulocyte Percent A 0.3 % (0.0-0.0); Lymphocytes Absolute Auto 2.68 K/mm3 (1.10-4.50); Lymphocytes Percent Auto 35.9 % (18.0-42.0); Mean Corpuscular HGB Conc 33.8 g/dL (32.0-36.0); Mean Corpuscular Volume 85.8 fL (78.0-102.0); Monocytes Absolute Auto 0.48 K/mm3 (0.10-0.90); Monocytes Percent Auto 6.4 % (2.0-11.0); Neutrophils Absolute Auto 4.1 K/mm3 (1.7-7.2); Neutrophils Percent Auto 55.1 % (50.0-70.0); Platelet Count Result 323 K/mm3 (150-420); Red Blood Count 5.27 M/mm3 (4.70-6.10); Red Cell Distribution Width 12.9 % (11.6-14.4); White Blood Count 7.5 K/mm3 (4.8-10.8)
[2022-04-16 10:36] LABS: Prothrombin Time 10.9 Seconds (9.50-12.10)
[2022-04-16 10:37] VITALS: PULSE 70
[2022-04-16 10:50] LABS: Alanine Aminotransferase 24 U/L (16-63); Albumin Level 3.5 g/dL (3.4-5.0); Alkaline Phosphatase 97 U/L (46-116); Anion Gap 7 mmol/L (8-16); Aspartate Amino Transferase 18 U/L (15-37); Bilirubin,Total 0.5 mg/dL (0.00-1.00); Blood Urea Nitrogen 14 mg/dL (7-18); Calcium 8.7 mg/dL (8.5-10.1); Carbon Dioxide 27 mmol/L (21-32); Chloride 100 mmol/L (98-108); Estimated CRCL calculation 56 ml/min; Estimated Glomerular Filt Rate 44; Glucose 103 mg/dL (70-99); Magnesium 2.2 mg/dL (1.8-2.4); NT Pro B Type Natriuretic Pept 57 pg/mL (0-125); Osmolality Calculated 278 mOsm/kg (285-295); Potassium 3.3 mmol/L (3.5-5.1); Sodium 134 mmol/L (136-145); Thyroid Stimulating Hormone 1.55 uIU/mL (0.36-3.74); Total Protein 7.1 g/dL (6.4-8.2)
[2022-04-16 10:54] LABS: Troponin I 71.2 ng/L (0.00-60.4)
[2022-04-16 10:55] LABS: Amphetamine Screen Urine Negative (Negative); Barbiturate Screen Urine Negative (Negative); Benzodiazepines Screen Urine Negative (Negative); Cannabinoid Screen Urine Negative (Negative); Cocaine Screen Urine Negative (Negative); Methadone Screen Urine Negative (Negative); Opiate Screen Urine Negative (Negative); Phencyclidine Screen Urine Negative (Negative)
[2022-04-16 11:00] VITALS: BP 120/91; PULSE 66; RESP 18; O2SAT 97
[2022-04-16] MEDS: ASPIRIN 81 MG CHEWABLE TABLET 324 MG PO (11:00)
[2022-04-16] MEDS: HEPARIN SODIUM 5,000 UNITS/ML VIAL 4000 UNITS IV PUSH (11:15)
[2022-04-16] MEDS: SODIUM CHLORIDE 0.9% IV 1,000 ML 150 ML IV CONT (11:35)
[2022-04-16] MEDS: ENOXAPARIN 100 MG/ML SYRINGE SUB-Q (11:45)
[2022-04-16 12:35] VITALS: BP 137/66; PULSE 72; RESP 20; TEMP 36.6; O2SAT 97
[2022-04-16 12:40] VITALS: BP 135/68; PULSE 66; RESP 20; O2SAT 97
[2022-04-16 13:25] VITALS: BP 134/78; PULSE 78; RESP 20; O2SAT 20
--- NOTE | 2022-04-16 13:26 | PC.NURSE ---
pt resting per cot. awaiting [facility] arrival. no complaints voiced. pt states 'im hungry , but declined food offered. i will wait til i get up there .
== END 2022-04-16 13:50 | disposition short-term general hospital (02) ==
PROVIDERS: Emergency Provider Family Medicine; PCP Family Medicine
DX: I21.4 Non-ST elevation (NSTEMI) myocardial infarction (principal); K21.9 Gastro-esophageal reflux disease without esophagitis; I10 Essential (primary) hypertension
CPT/HCPCS: 36415; 80053; 80307; 83735; 83880; 84443; 84484; 85025; 85610; 93005; 96361; 96372; 96374; 99285; A9270; J1644; J1650; J7030

== ENCOUNTER 2022-06-01 12:33 | Outpatient (CLI) | payer MEDICARE, SELFPAY ==
[2022-06-01 13:15] LABS: Cholesterol 135 mg/dL (0-200); HDL Direct 50 mg/dL (40-60); LDL Cholesterol Calculated 54 mg/dL (<130); Triglycerides 157 mg/dL (0-150)
== END 2022-06-01 12:34 | disposition home or self-care (01) ==
LOC: CHSLAB 12:36
PROVIDERS: PCP Family Medicine; Visit Provider Family Medicine
DX: E78.5 Hyperlipidemia, unspecified (principal)
CPT/HCPCS: 36415; 80061

== ENCOUNTER 2022-07-06 19:45 | Outpatient (CLI) | payer MEDICARE, SELFPAY ==
--- NOTE | 2022-08-05 20:27 | WPDSLEEPSTUD ---
Sleep Study Date of Study: 07/06/22 Ordering Provider: Cooper Romero DO Interpreting Physician: Anay Jacobson MD Sleep Study Type: Polysomnogram Height: 1.93 m Weight: 115.666 kg Body Mass Index: 31.0 Neck Circumference (inches): 16.5 [place]: 6 Reason for Sleep Study Non restorative sleep, loud snoring Sleep History Tarik Blevins is a 67-year-old man with a history of a recent non STEMI. Has daytime hypersomnolence. His spray applicator wanted him to have a sleep study. There is a family history of sleep issues, his sister uses CPAP. He rarely awakens from sleep feeling short of breath. He occasionally awakens at night with heartburn, belching or coughing. He frequently snores and it is loud enough that others complain about it. He occasionally has trouble sleeping with a cold. He rarely wakes up gasping for breath at night. He rarely has breathing problems at night observed by others. He rarely sweats excessively at night. He rarely notices his heart pounding or beating irregularly at night. He occasionally falls asleep during the day however he does not fall asleep involuntarily or while driving. Does not have loss of muscle tone with strong emotion. He does not have daytime difficulties due to excessive sleepiness. He does not feel paralyzed on waking or falling asleep nor does he have vivid dreamlike scenes upon awakening or falling asleep. He does not feel afraid to go to sleep. He does not have nightmares. He occasionally remembers his dreams. He frequently has racing thoughts. He rarely feels sad or depressed. He occasionally has anxiety and muscular tension. He rarely notices parts of his body jerking. He occasionally kicks at night. He rarely has crawling aching feelings in his legs. He rarely has any kind of leg pain at night. He rarely has morning jaw pain. He does not grind his teeth during sleep. He rarely is bothered by pain during the day. He is not awakened by pain at night. He rarely wakes up feeling stiff in the morning, rarely wakes up with sore achy muscles. He occasionally wakes up with pain in the neck and spine. He has headaches and fatigue. He takes antacids regularly. Normal bedtime is between 9:00 p.m. and 10:00 p.m., falling asleep within 15 minutes, typically waking 3-4 times at night. These occur in the high rigger hours. He wakes in the morning between 4:00 a.m. and 6:00 a.m.. Weekend schedule is the same. He estimates getting 5-6 hours of sleep at night. He takes naps about 3-4 days out of the week. A short nap may be refreshing. He feels better in the afternoon compared to other times of day. He rarely awakens feeling refreshed. Habits: Caffeine, ice tea regularly. No alcohol or recreational drugs. [facility] Past Medical History Medical History Angioedema Daytime somnolence GERD (gastroesophageal reflux disease) Hypertension Overweight Surgical History Surgical History History of aortic aneurysm repair History of cholecystectomy History of rotator cuff surgery Family History Family History Father No problems noted. Mother No problems noted. Social History Social History Smoking status: Never smoker Alcohol intake: never Medications Home Medications Medication Instructions Recorded Confirmed Type atorvastatin 40 mg tablet 40 mg PO DAILY #90 tabs 04/20/22 04/20/22 Rx carvedilol 3.125 mg tablet 3.125 mg PO Q12H #180 tabs 04/20/22 04/20/22 Rx Sleep Procedure This test was performed using the [employer] multiple channel system including EOG, EEG, submental EMG, EKG, nasal and oral airflow using thermistors and nasal pressure sensors, chest and abdominal belts for body position data, and pulse oxi
[2022-08-05 20:40] VITALS: BMI 31.0
== END 2022-07-07 07:11 | disposition home or self-care (01) ==
PROVIDERS: PCP Family Medicine; Visit Provider Family Medicine
DX: G47.33 Obstructive sleep apnea (adult) (pediatric) (principal); I10 Essential (primary) hypertension; K21.9 Gastro-esophageal reflux disease without esophagitis
CPT/HCPCS: 95810

== ENCOUNTER 2023-02-08 15:40 | Emergency (ER) | payer MEDICARE, SELFPAY ==
[2023-02-08 15:41] VITALS: BP 180/84; TEMP 36.8; O2SAT 98
--- NOTE | 2023-02-08 15:55 | ED.ALLEREA ---
HPI - Allergic Reaction General Chief complaint: Allergic Reaction Stated complaint: facial/arm swelling and rash Time Seen by Provider: 02/08/23 15:48 Source: patient Mode of arrival: ambulatory Limitations: no limitations History of Present Illness HPI narrative: This is a 67-year-old male that presents with facial swelling and lip swelling has taken Benadryl [id number] and his symptoms have improved, there is no audible wheezing no shortness of breath is throat is clear there is no tongue swelling no fever chills. complaint: allergic reaction Onset (ago): hour(s) Exposure: unknown Symptoms: facial swelling and lip swelling Severity: mild Related Data Allergies Allergy/AdvReac Type Severity Reaction Status Date / Time No Known Allergies Allergy Verified 02/08/23 15:49 Review of Systems Review of Systems: All systems reviewed & are unremarkable except as noted in HPI and below PMFSH Past Medical History Medical History Angioedema Daytime somnolence GERD (gastroesophageal reflux disease) Hypertension Overweight Surgical History Surgical History History of aortic aneurysm repair History of cholecystectomy History of rotator cuff surgery Family History Family History Father No problems noted. Mother No problems noted. Social History Social History Smoking status: Never smoker Alcohol intake: never Exam Const: General: healthy appearing Nutritional Appearance: well nourished Orientation/consciousness: patient oriented x3 Limitations: no limitations HENMT: Head: normal to inspection Eyes: Conjunctivae: conjunctivae normal Neck: Neck: normal visual inspection and no lymphadenopathy Chest: Chest palpation & inspection: normal inspection of the chest Resp: Effort & Inspection: normal respiratory effort Auscultation: clear to auscultation bilaterally Cardio: Rate: regular rate Rhythm: regular rhythm GI: GI Palp: Yes Soft to palpation Auscultation: normal bowel sounds Skin: Other: Mild swelling right upper lip and right facial area and right forearm with urticarial lesions. Extrem: General: normal to inspection Psych: Mental Status: mental status grossly normal Affect: normal affect Course Course Emergency Course: Patient received a dose of IM Depo-Medrol 80mg and a dose of 20mg p.o. Pepcid. Vital Signs Vital signs: Vital Signs Temperature 36.8 C 02/08/23 15:41 Blood Pressure 180/84 H 02/08/23 15:41 Pulse Oximetry 98 02/08/23 15:41 Oxygen Delivery Room Air 02/08/23 15:41 Temperature 36.8 C 02/08/23 15:41 Blood Pressure 180/84 H 02/08/23 15:41 Pulse Oximetry 98 02/08/23 15:41 Oxygen Delivery Room Air 02/08/23 15:41 Critical Care Time Critical Care Time Critical Care Time: No Discharge Plan Discharge Clinical Impression: Urticaria, Allergic reaction Patient Disposition: Home, Self-Care Condition: Stable Instructions: Antibiotic Form, Urticaria (ED), General Allergic Reaction (ED) Additional Instructions: advised to take medicine as prescribed along with some Pepcid [id number] daily x1 week and follow with primary care physician for further evaluation. Prescriptions: New prednisone 20 mg tablet 20 mg PO DAILY 5 Days Qty: 5 0RF No Action carvedilol 3.125 mg tablet 3.125 mg PO Q12H Qty: 180 3RF Rx Instructions: must administer with a meal/food atorvastatin 40 mg tablet See Rx Instructions .ROUTE .COMPLEX Qty: 90 3RF Dose Instruction: TAKE ONE TABLET BY MOUTH DAILY Rx Instructions: TAKE ONE TABLET BY MOUTH DAILY Follow-up/Referrals: Cooper Romero DO [Primary Care Provider] - Time of Disposition: 15:59
[2023-02-08] MEDS: methylPREDNISolone ACETATE 40 MG/ML VIAL 80 MG IM (16:03)
[2023-02-08] MEDS: FAMOTIDINE 20 MG TABLET PO (16:03)
== END 2023-02-08 16:09 | disposition home or self-care (01) ==
LOC: CHSED 16:04
PROVIDERS: Emergency Provider Emergency Medicine; PCP Family Medicine
DX: L50.0 Allergic urticaria (principal); I10 Essential (primary) hypertension
CPT/HCPCS: 96372; 99283; A9270; J1030

== ENCOUNTER 2023-02-14 07:00 | Outpatient (CLI) | payer MEDICARE, SELFPAY ==
[2023-02-14 07:10] LABS: Basophils Absolute Auto 0.06 K/mm3 (0.00-0.10); Basophils Percent Auto 0.4 % (0.0-1.0); Eosinophils Absolute Auto 0.13 K/mm3 (0.02-0.50); Hematocrit 44.2 % (37.0-46.0); Hemoglobin 14.6 g/dL (12.4-15.3); Immature Granulocyte Absolute 0.07 K/mm3 (0.00-0.00); Immature Granulocyte Percent A 0.5 % (0.0-0.0); Lymphocytes Absolute Auto 4.09 K/mm3 (1.10-4.50); Lymphocytes Percent Auto 30.5 % (18.0-42.0); Mean Corpuscular Hemoglobin 29.1 pg (27.0-31.0); Mean Platelet Volume 8.9 fl (8.7-11.0); Monocytes Absolute Auto 1.02 K/mm3 (0.10-0.90); Monocytes Percent Auto 7.6 % (2.0-11.0); Platelet Count Result 357 K/mm3 (150-420); Red Blood Count 5.02 M/mm3 (4.70-6.10); Red Cell Distribution Width 13.3 % (11.6-14.4); White Blood Count 13.4 K/mm3 (4.8-10.8)
[2023-02-14 08:14] LABS: Alanine Aminotransferase 26 U/L (16-63); Albumin Level 3.4 g/dL (3.4-5.0); Alkaline Phosphatase 106 U/L (46-116); Anion Gap 8 mmol/L (8-16); Aspartate Amino Transferase 10 U/L (15-37); Bilirubin,Total 0.4 mg/dL (0.00-1.00); Blood Urea Nitrogen 15 mg/dL (7-18); Calcium 8.7 mg/dL (8.5-10.1); Carbon Dioxide 28 mmol/L (21-32); Chloride 104 mmol/L (98-108); Cholesterol 115 mg/dL (0-200); Estimated Glomerular Filt Rate > 60; Glucose 81 mg/dL (70-99); HDL Direct 48 mg/dL (40-60); LDL Cholesterol Calculated 46 mg/dL (<130); Osmolality Calculated 289 mOsm/kg (285-295); Potassium 3.9 mmol/L (3.5-5.1); Sodium 140 mmol/L (136-145); Total Protein 6.5 g/dL (6.4-8.2); Triglycerides 104 mg/dL (0-150)
== END 2023-02-14 07:01 | disposition home or self-care (01) ==
LOC: CHSLAB 07:02
PROVIDERS: PCP Family Medicine; Visit Provider Family Medicine
DX: I25.10 Atherosclerotic heart disease of native coronary artery without angina pectoris (principal)
CPT/HCPCS: 36415; 80053; 80061; 85025

== ENCOUNTER 2023-06-16 12:58 | Emergency (ER) | payer MEDICARE, SELFPAY ==
[2023-06-16] VITALS (10 sets, daily range): BP systolic 154–208; BP diastolic 68–80; PULSE 55–67; RESP 13–19; TEMP 36.8–36.9; O2SAT 97–100
[2023-06-16] MEDS: EPINEPHrine HCL INJ 1 MG/ML AMPUL 0.3 MG IM (13:07)
[2023-06-16] MEDS: methylPREDNISolone ACETATE 40 MG/ML VIAL 80 MG IM (13:07)
--- NOTE | 2023-06-16 13:18 | ED.ALLEREA ---
HPI - Allergic Reaction General Chief complaint: Allergic Reaction Stated complaint: tongue swelling Time Seen by Provider: 06/16/23 13:02 Source: patient Mode of arrival: ambulatory Limitations: no limitations History of Present Illness HPI narrative: This is a 68-year-old male that presents with tongue swelling, the patient has a history of angioedema, states there is no inciting factor that led to his current swelling, denies shortness of breath there is no audible wheezing no fever chills no chest pain. Patient did take Benadryl prior to arrival to the emergency department. Patient has had past episodes with angioedema that have been taking been treated in the emergency department. complaint: allergic reaction and facial swelling Onset (ago): hour(s) Exposure: unknown Symptoms: lip swelling and tongue swelling Severity: moderate Treatment prior to arrival: benadryl Previous Allergic Reaction History: prior ED visit(s) and angioedema Related Data Allergies Allergy/AdvReac Type Severity Reaction Status Date / Time No Known Allergies Allergy Verified 06/16/23 13:13 Review of Systems Review of Systems: All systems reviewed & are unremarkable except as noted in HPI and below PMFSH Past Medical History Medical History Angioedema Daytime somnolence GERD (gastroesophageal reflux disease) Hypertension Overweight Surgical History Surgical History History of aortic aneurysm repair History of cholecystectomy History of rotator cuff surgery Family History Family History Father No problems noted. Mother No problems noted. Social History Social History Smoking status: Never smoker Alcohol intake: never Exam Const: General: healthy appearing and no acute distress Nutritional Appearance: well nourished Orientation/consciousness: patient oriented x3 Limitations: no limitations HENMT: Other: Tongue swelling Eyes: Conjunctivae: conjunctivae normal Pupils: Equal, round and reactive pupils present Neck: Neck: normal visual inspection Chest: Chest palpation & inspection: normal inspection of the chest Resp: Effort & Inspection: normal respiratory effort Auscultation: clear to auscultation bilaterally Cardio: Rate: regular rate Rhythm: regular rhythm Skin: General skin exam: normal color Rashes: no rashes Neuro: General: patient oriented x3 and moves all extremities Extrem: General: normal to inspection Psych: Mental Status: mental status grossly normal Course Course Emergency Course: patient received a dose of IM epinephrine and IM 80mg of Depo-Medrol, reassessment of patient, patient still has some tongue swelling but no immediate danger as far is no shortness of breath no audible wheezing. The patient has had similar episodes and feels comfortable going home. Vital Signs Vital signs: Vital Signs Temperature 36.9 C 06/16/23 13:00 Pulse Rate 67 06/16/23 13:00 Respiratory Rate 19 06/16/23 13:00 Blood Pressure 208/80 H 06/16/23 13:00 Pulse Oximetry 100 06/16/23 13:00 Oxygen Delivery Room Air 06/16/23 13:00 Temperature 36.9 C 06/16/23 13:14 Pulse Rate 67 06/16/23 13:14 Respiratory Rate 19 06/16/23 13:14 Blood Pressure 208/80 H 06/16/23 13:14 Pulse Oximetry 100 06/16/23 13:14 Oxygen Delivery Room Air 06/16/23 13:00 Critical Care Time Critical Care Time Critical Care Time: No Discharge Plan Discharge Clinical Impression: Angioedema Qualifiers: Encounter type: initial encounter Qualified Code(s): T78.3XXA - Angioneurotic edema, initial encounter Patient Disposition: Home, Self-Care Condition: Stable Instructions: Antibiotic Form, Angioedema (ED) Additional Instructions:
--- NOTE | 2023-06-16 13:40 | PC.NURSE ---
PATIENT STATES SYMPTOMS HAVE IMPROVED. PATIENT REPORTS SYMPTOMS USUALLY DON'T FULLY RESOLVE UNTIL 24-48 HOURS.
== END 2023-06-16 14:23 | disposition home or self-care (01) ==
PROVIDERS: Emergency Provider Emergency Medicine; PCP Family Medicine
DX: T78.3XXA Angioneurotic edema, initial encounter (principal); I10 Essential (primary) hypertension
CPT/HCPCS: 96372; 99284; J0171; J1030

== ENCOUNTER 2023-11-02 08:37 | Emergency (ER) | payer MEDICARE, SELFPAY ==
[2023-11-02] VITALS (10 sets, daily range): BP systolic 146–171; BP diastolic 74–91; PULSE 57–73; RESP 19–20; TEMP 36.8–37.2; O2SAT 96–99
--- NOTE | 2023-11-02 08:47 | ED.GENADULT ---
HPI - General Adult General Chief complaint: Unspecified Stated complaint: tongue swelling Time Seen by Provider: 11/02/23 08:47 History of Present Illness HPI narrative: Patient is a 68 year old male with history of idiopathic angioedema, GERD, HTN here with tongue swelling. He notes that this episode began around 2 am. He was able to take 50 mg of benadryl with minimal improvement of symptoms. Symptoms progressed today causing him to present to the ED. He endorses focal tongue swelling, denies throat swelling, stridor, difficulty breathing. He notes that he has had similar episodes for 20+ years, seeing specialists at [facility] 3 times in the past without any formal cause of the angioedema identified. He typically gets episodes every 3-4 weeks, when he is able to take 6-7 tablets of OTC benadryl the symptoms usually resolve enough to stay home. Occasionally when he is unable to get enough benadryl in his system, he typically presents to the ER. He has had to be admitted in the past for the angioedema, has never required intubation. Related Data Allergies Allergy/AdvReac Type Severity Reaction Status Date / Time No Known Allergies Allergy Verified 06/16/23 13:13 Review of Systems Review of Systems: All systems reviewed & are unremarkable except as noted in HPI and below PMFSH Past Medical History Medical History Angioedema Daytime somnolence GERD (gastroesophageal reflux disease) Hypertension Overweight Surgical History Surgical History History of aortic aneurysm repair History of cholecystectomy History of rotator cuff surgery Family History Family History Father No problems noted. Mother No problems noted. Social History Social History Smoking status: Never smoker Alcohol intake: never Exam Narrative: GENERAL: Well-appearing, well-nourished, and in no acute distress. HEAD: Normocephalic, atraumatic. EYES: PERRLA and EOMI. ENT: Nares clear. Mucous membranes moist. Enlarged tongue, diffusely, obscures the posterior pharynx. No stridor. NECK: Supple. CHEST: Clear to auscultation. No wheeze. No respiratory distress. HEART: Regular rate and rhythm. Normal peripheral pulses. ABDOMEN: Soft, nontender, nondistended. EXTREMITIES: Normal range of motion. No edema. SKIN: Warm, dry, no rash. NEURO: No focal deficits. Alert and oriented x3. PSYCH: Normal mood and affect. Course Course Emergency Course: Chart review performed. Patient here with facial swelling. Multiple visits for Angioedema in our system. Most recent visit was in May 2023, he received epi and steroids in the department, had improvement and was discharged home. Patient seen and evaluated. Appears to have isolated swelling to the tongue, consistent with his history of angioedema. No additional system involvement. No stridor. Patient notes similar episodes, rates this as a 6/10 for severity of his angioedema episodes. Will do epi, decadron, pepcid, benadryl, and monitor airway. Patient reevaluated. Notes he is feeling significantly better. Will continue to observe for a while longer. Patient reevaluated, requesting to be discharged at this time. Continues to have some tongue swelling, notes it feels like it has significantly improved. He is able to stick his tongue out now on exam. Recommended course of oral steroids for home, he refused, noting this never seems to help his swelling. Strict return precautions advised to patient. Advised to follow with PCP and return emergently should his symptoms worsen. The results of pertinent diagnostic studies and exam findings were discussed. The patient?s provisional diagnosis and plan of care were discussed with the patient and present family. The patient and/
[2023-11-02] MEDS: FAMOTIDINE 20 MG/2 ML VIAL 40 MG IV PUSH (09:00)
[2023-11-02] MEDS: EPINEPHrine HCL INJ 1 MG/ML AMPUL 0.3 MG IM (09:01)
[2023-11-02] MEDS: diphenhydrAMINE HCl INJ 50 MG/ML VIAL IV PUSH (09:03)
[2023-11-02] MEDS: dexAMETHasone SOD PHOS INJ 10 MG/ML 1 ML VIAL IV PUSH (09:03)
== END 2023-11-02 10:42 | disposition home or self-care (01) ==
PROVIDERS: Emergency Provider Student in an Organized Health Care Education/Training Program; PCP Family Medicine
DX: T78.3XXA Angioneurotic edema, initial encounter (principal); I10 Essential (primary) hypertension
CPT/HCPCS: 96372; 96374; 96375; 99284; J0171; J1100; J1200

== ENCOUNTER 2023-11-29 15:32 | Emergency (ER) | payer MEDICARE, SELFPAY ==
--- NOTE | ~2023-11-29 | CT_ITS ---
EXAMINATION: CT abdomen pelvis wo con DATE: 11/29/2023 16:17 INDICATION: Abdominal pain. Ventral hernia. TECHNIQUE: Computed tomography (CT) of the abdomen and pelvis was performed without intravenous contr ast. Automated exposure control and iterative reconstruction technique were employed. The dose-length product was 903.56 mGy-cm. COMPARISON: None. FINDINGS: The visualized portions of the lung bases demonstrate mild atelectasis. A calcified left emilie ng nodule is consistent with old granulomatous disease. No pleural effusion. The heart size is normal . No pericardial effusion. There is a small sliding hiatal hernia. There is wall thickening of the di stal esophagus. The liver is normal. There are changes of cholecystectomy. Calcifications in the sple en are consistent with old granulomatous disease. The pancreas, adrenal glands, and kidneys are chanell l. There is no urolithiasis. The prostate is mildly enlarged. There are no dilated loops of bowel. Th e appendix is normal. There are no pathologically enlarged lymph nodes. There is no free intraperiton eal fluid. There is moderate thoracic spondylosis and mild lumbar spondylosis. There is mild chronic anterior wedging of multiple vertebral bodies. IMPRESSION: 1. Small sliding hiatal hernia. 2. Wall thickening of the distal esophagus, likely esophagitis. 3. No ventral hernia identified. Reviewed, dictated and finalized at location A.
[2023-11-29 15:36] VITALS: BP 185/92; PULSE 70; RESP 20; TEMP 36.4; O2SAT 96
[2023-11-29 15:38] VITALS: BP 185/92; O2SAT 97
[2023-11-29 15:46] VITALS: BP 184/82; O2SAT 98
[2023-11-29 15:56] LABS: Basophils Absolute Auto 0.04 K/mm3 (0.00-0.10); Basophils Percent Auto 0.4 % (0.0-1.0); Eosinophils Absolute Auto 0.32 K/mm3 (0.02-0.50); Eosinophils Percent Auto 2.8 % (1.0-6.0); Hematocrit 46.4 % (37.0-46.0); Hemoglobin 15.4 g/dL (12.4-15.3); Immature Granulocyte Absolute 0.05 K/mm3 (0.00-0.00); Immature Granulocyte Percent A 0.4 % (0.0-0.0); Lymphocytes Absolute Auto 3.14 K/mm3 (1.10-4.50); Lymphocytes Percent Auto 27.5 % (18.0-42.0); Mean Corpuscular HGB Conc 33.2 g/dL (32-36); Mean Corpuscular Volume 87.4 fL (78.0-102.0); Mean Platelet Volume 8.7 fl (8.7-11.0); Monocytes Absolute Auto 0.59 K/mm3 (0.10-0.90); Monocytes Percent Auto 5.2 % (2.0-11.0); Neutrophils Absolute Auto 7.27 K/mm3 (1.70-7.20); Neutrophils Percent Auto 63.7 % (50.0-70.0); Platelet Count Result 410 K/mm3 (150-420); Red Blood Count 5.31 M/mm3 (4.70-6.10); Red Cell Distribution Width 12.6 % (11.6-14.4); White Blood Count 11.4 K/mm3 (4.8-10.8)
[2023-11-29 16:01] VITALS: BP 162/86; O2SAT 96
--- NOTE | 2023-11-29 16:05 | PC.NURSE ---
PT TO CT VIA W/C
[2023-11-29 16:12] LABS: Alanine Aminotransferase 30 U/L (16-63); Albumin Level 3.5 g/dL (3.4-5.0); Alkaline Phosphatase 96 U/L (46-116); Anion Gap 10 mmol/L (4-12); Aspartate Amino Transferase 16 U/L (15-37); Bilirubin,Total 0.3 mg/dL (0.00-1.00); Blood Urea Nitrogen 16 mg/dL (7-18); Calcium 8.4 mg/dL (8.5-10.1); Carbon Dioxide 26 mmol/L (21-32); Chloride 104 mmol/L (98-108); Estimated CRCL calculation 60 ml/min; Estimated Glomerular Filt Rate 49; Glucose 101 mg/dL (70-99); Lipase 41 U/L (16-77); Osmolality Calculated 291 mOsm/kg (285-295); Sodium 140 mmol/L (136-145)
--- NOTE | 2023-11-29 16:31 | ED.ABDPAIN ---
HPI - Abdominal Pain General Chief Complaint: Abdominal Pain Stated Complaint: PAINFUL ABD MASS Time Seen by Provider: 11/29/23 15:41 Source: patient Mode of arrival: ambulatory Limitations: no limitations History of Present Illness HPI narrative: patient presents with some abdominal pain localized to the epigastric area with some mild nausea currently pain levels 4/10 with no fever chills no chest pain no flank pain no dysuria no hematuria. MD elicited complaint: abdominal pain Pertinent past history: none Onset (ago): hour(s) Pain Consistency: intermittent Location: epigastric Quality: aching and burning Radiation: none Migration to: no migration Exacerbating factors: movement Related Data Allergies Allergy/AdvReac Type Severity Reaction Status Date / Time No Known Allergies Allergy Verified 11/29/23 15:46 Review of Systems Review of Systems: All systems reviewed & are unremarkable except as noted in HPI and below PMFSH Past Medical History Medical History Angioedema Daytime somnolence GERD (gastroesophageal reflux disease) Hypertension Overweight Surgical History Surgical History History of aortic aneurysm repair History of cholecystectomy History of rotator cuff surgery Family History Family History Father No problems noted. Mother No problems noted. Social History Social History Smoking status: Never smoker Alcohol intake: never Exam Const: General: healthy appearing, no acute distress and alert Limitations: no limitations Chest: Chest palpation & inspection: normal inspection of the chest Resp: Effort & Inspection: normal respiratory effort Auscultation: clear to auscultation bilaterally Cardio: Rate: regular rate Rhythm: regular rhythm GI: GI Palp: Yes Soft to palpation and Yes Tenderness to palpation present (GI) Auscultation: normal bowel sounds : General: Yes bladder normal to palpation Back/Spine/Pelvis: Back: no CVA tenderness Skin: General skin exam: normal color Rashes: no rashes Extrem: General: normal to inspection Course Course Emergency Course: Patient showed no acute CT scan performed shows mild sliding hernia and esophagitis, advised patient to discontinue his Pepcid and start Protonix at her side is the pharmacy. Vital Signs Vital signs: Vital Signs Temperature 36.4 C 11/29/23 15:36 Pulse Rate 70 11/29/23 15:36 Respiratory Rate 20 11/29/23 15:36 Blood Pressure 185/92 H 11/29/23 15:36 Pulse Oximetry 96 11/29/23 15:36 Oxygen Delivery Room Air 11/29/23 15:36 Temperature 36.4 C 11/29/23 15:36 Pulse Rate 70 11/29/23 15:36 Respiratory Rate 20 11/29/23 15:36 Blood Pressure 184/82 H 11/29/23 15:46 Pulse Oximetry 98 11/29/23 15:46 Oxygen Delivery Room Air 11/29/23 15:36 MDM - Abdominal Pain Lab Data 11/29/23 15:52 11/29/23 15:52 Labs: Lab Results 11/29/23 Range/Units 15:52 WBC 11.4 H (4.8-10.8) K/mm3 RBC 5.31 (4.70-6.10) M/mm3 Hgb 15.4 H (12.4-15.3) g/dL Hct 46.4 H (37.0-46.0) % MCV 87.4 (78.0-102.0) fL MCH 29.0 (27.0-31.0) pg MCHC 33.2 (32-36) g/dL RDW 12.6 (11.6-14.4) % Plt Count 410 (150-420) K/mm3 MPV 8.7 (8.7-11.0) fl Immature Gran % (Auto) 0.4 H (0.0-0.0) % Neut % (Auto) 63.7 (50.0-70.0) % Lymph % (Auto) 27.5 (18.0-42.0) % [place] % (Auto) 5.2 (2.0-11.0) % Eos % (Auto) 2.8 (1.0-6.0) % Baso % (Auto) 0.4 (0.0-1.0) % Lymph # (Auto) 3.14 (1.10-4.50) K/mm3 [place] # (Auto) 0.59 (0.10-0.90) K/mm3 Eos # (Auto) 0.32 (0.02-0.50) K/mm3 Baso # (Auto) 0.04 (0.00-0.10) K/mm3 Abs Immat Gran (auto) 0.05 H (0.00-0.00) K/mm3 Absolute Neuts (auto) 7.27 H (1.70-7.20) K/mm3
[2023-11-29 16:38] VITALS: PULSE 84; RESP 16; O2SAT 94
[2023-11-29 16:39] VITALS: BP 164/91; PULSE 88; RESP 16; O2SAT 96
== END 2023-11-29 16:42 | disposition home or self-care (01) ==
PROVIDERS: Emergency Provider Emergency Medicine; PCP Family Medicine
DX: K20.90 Esophagitis, unspecified without bleeding (principal); I10 Essential (primary) hypertension
CPT/HCPCS: 36415; 74176; 80053; 83690; 85025; 99284

== ENCOUNTER 2023-12-13 09:06 | Outpatient (CLI) | payer MEDICARE, SELFPAY ==
[2023-12-14 15:19] LABS: H pylori, Urea Breath NOT DETECTED (NOT DETECTED)
== END 2023-12-13 09:07 | disposition home or self-care (01) ==
LOC: CHSLAB 09:07
PROVIDERS: PCP Family Medicine; Visit Provider Family Medicine
DX: K21.9 Gastro-esophageal reflux disease without esophagitis (principal)
CPT/HCPCS: 83013

== ENCOUNTER 2024-01-15 10:48 | Outpatient (CLI) | payer MEDICARE, SELFPAY ==
[2024-01-15 11:35] LABS: Uric Acid 5.7 mg/dL (3.5-7.2)
== END 2024-01-15 10:49 | disposition home or self-care (01) ==
LOC: CHSLAB 10:49
PROVIDERS: PCP Family Medicine; Visit Provider Family Medicine
DX: M10.9 Gout, unspecified (principal)
CPT/HCPCS: 36415; 84550

== ENCOUNTER 2024-01-25 09:12 | Outpatient (CLI) | payer MEDICARE, SELFPAY ==
--- NOTE | ~2024-01-25 | XR_ITS ---
Left foot Technique: AP, oblique, and lateral views were obtained. Clinical History: Pain Findings: No acute fracture or dislocation is seen. Osseous alignment is anatomic. There is mild dege nerative change of the first MTP joint and interphalangeal joint of the great toe. Soft tissues are u nremarkable. Impression: Mild degenerative change, as above. Reviewed, dictated and finalized at location M. Impression: Mild degenerative change, as above.
== END 2024-01-25 09:13 | disposition home or self-care (01) ==
LOC: CHSIMG 09:15
PROVIDERS: PCP Family Medicine; Visit Provider Family Medicine
DX: M79.672 Pain in left foot (principal)
CPT/HCPCS: 73630

== ENCOUNTER 2024-10-07 07:14 | Outpatient (CLI) | payer MEDICARE, SELFPAY ==
--- OUTSIDE RECORDS SUMMARY | 2024-10-07 07:17 | XMS_ITS | Continuity of Care Document ---
Author Organization [facility] Address [address] [place] [address] Phone Care Team Providers Care Law Instructor Name Role Phone Shade Barr MD Unavailable Unavailable Procedures Procedure Date Special Narrative Report Work/medical disability examination Jacy X-ray exam of shoulder, complete 2005 Record Review Advance Directives Directive Yes / No Effective Date File Name No Information Encounters Encounter Description Practice Location Reason(s) For Visit Diagnoses Date Provider Providers Copied on Encounter [facility], [address] [place] [address], [address] [place] [address], [phone] [facility] No Information [address] [place] [address], [id number] , . tel: [phone] Work/medical disability examination Jacy [facility], [address] [place] [address], [id number], tel:[phone] [facility] No Information [address] [place] [address], [id number] , . tel: [phone] Family History Family Member Type Diagnosis Age At Onset No Information Payers Payer name Insurance type Covered democrat ID Authoriza tijanna(s) Liazon [id number] Social History Type Description Quantity Date Captured Comments Sex Male Smoking Status No Information Chief Complaint And Reason For Visit No Information Reason For Referral Reason For Referral No Information History Of Present Illness Encounter Date Complaint History Of Prese nt Illness No Information Functional Status Date Functional Assessmen t No Information Instructions Date Instruction Additional Infor mation No Information Assessments Type Assessment Date No Information Patient Care Teams Name Effective Dates (start - stop) Status Members No Information
--- OUTSIDE RECORDS SUMMARY | 2024-10-07 07:17 | XMS_ITS | Clinical Summary ---
Author Organization [facility] Address [facility] [place] [address] Care Team Providers Care Operating Cost Clerk Name Role Phone Cooper Romero DO Primary Care Provider [phone] Cassidy Alarcon MD Unavailable Allergies No known active allergies Medications carvedilol (COREG) 3.125 MG tablet Take 1 tablet (3.125 mg total) by mouth 2 (two) times daily. 05/19/2022 Active diphenhydrAMINE (BENADRYL) 25 MG capsule Take 1 capsule (25 mg total) by mouth nightly as needed. Active Famotidine (PEPCID AC OR) Activ e lovastatin (MEVACOR) 40 MG tablet Take 1 tablet (40 mg total) by mouth daily. 11/08/2023 Active montelukast (SINGULAIR) 10 MG tablet Take 1 tablet (10 mg total) by mouth daily. 01/30/2024 Active predniSONE (DELTASONE) 20 MG tablet Take 2 tablets (40 mg total) by mouth daily as needed. 01/30/2024 Active Active Problems Problem Noted Date Diagnosed Date NSTEMI (non-ST elevated myoc ardial infarction) (CMS/HCC [facility]/HCC) 04/16/2022 Essential (primary) hypertension History of angioedema Hyperlipidemia, unspecified hyperlipidemia type Encounters Date Type Department Care Team Description 09/23/2024 8:13 AM PLUG CUTTER - 09/23/2024 11:59 PM PLUG CUTTER Hospital Encounter [facility] [address] [place] [address] Cassidy Alarcon MD Discharge Disposition: Home or Self Care (Routine Discharge) 09/23/2024 Travel from Last 3 Months Family History Medical History Relation Comments Heart Disease Father Relation Status Comments Father Social History Tobacco Use Types Packs/Day Years Used Date Smoking Tobacco: Never Smokeless Tobacco: Never Alcohol Use Standard Drinks/Week Comments Not Currently 0 (1 standard drink = 0.6 oz pur e alcohol) Sex and Gender Information Value Date Recorded Sex Assigned at Not on file Legal Sex Male 12:23 AM CDT Gender Identity Not on file Sexual Orientation Not on file Last Filed Vital Signs Vital Sign Reading Time Taken Comments Blood Pressure 138/82 06/23/2024 3:02 PM PLUG CUTTER Pulse 60 06/23/2024 3:02 PM PLUG CUTTER Temperature 36.3 C (97.3 F) 04/18/2022 8:02 AM CDT Respiratory Rate 14 06/23/2024 3:02 PM PLUG CUTTER Oxygen Saturation 99% 06/23/2024 3:02 PM PLUG CUTTER Inhaled Oxygen Concentration - - Weight 111.1 kg (245 lb) 06/23/2024 3:02 PM PLUG CUTTER Height 188 cm (6' 2 ) 06/23/2024 3:02 PM PLUG CUTTER Body Mass Index 31.46 06/23/2024 3:02 PM PLUG CUTTER Plan of Treatment Upcoming Encounters Date Type Department Care Team (Late st Contact Info) Description 06/29/2025 2:45 PM PLUG CUTTER Office Visit [facility] [place] [phone] Cassidy Alarcon MD [address] [place] [address] Health Maintenance Due Date Last Done Comments ASCVD LDL 1955 Colorectal Cancer Screening Colonoscopy (10 Years) 1955 Hepatitis C 1974 DTaP, Tdap and Td Vaccines ( 1 - Tdap) 1975 Zoster Vaccines (1 of 2) 2006 RSV Immunization or 60+ Years (1 - Risk 60-74 years 1-dose series) 2016 Pneumococcal Vaccine: 65+ Years (2 of 2 - PPSV23 or PCV20) 05/04/2021 03/09/2021 Annual Medicare Wellness Visit 2021 COVID-19 Vaccine (2023-2 5 season) 2024 09/08/2021, 04/11/2021, 03/21/2021 Influenza Adult (#1) 2024 Meningococcal B Vaccine Aged Out No l onger eligible based on patient's age to complete this topic Meningococcal Vaccine Aged Out No floyd debra eligible based on patient's age to complete this topic RSV Immunizations Under 20 Months Aged Out No longer eligible b ased on patient's age to complete this topic Goals Goal Patient Goal Type Associated Problems Recent Progress Patient-Stated? Author Patient will return to prior living situation and remain independent in ADLs upon discharge from hospital Lifestyle Yes Barbara Matthews, RN Note: He will going home and if help is needed he has family near by Procedures Procedure Name Priority Date/Time Associated Diagnosis Comments USE ECHOCARDIOGRAM W CON Routine 09/23/2024 9:25 AM PLUG CUTTER Ascending aorta dilatation (CMS/HCC) from Last 3 Months Results * USE ECHOCARDIOGRAM W CON (09/23/2024 9:25 AM PLUG CUTTER) Anatomical Region Laterality Modality NA Ultrasound 09/23/2024 8:46 AM PLUG CUTTER Narrative 09/26/2024 6:58 AM PLUG CUTTER Echocardiography Report Pat.Name: Tarik Blevins Pat.ID: [id number] .Date: 09/23/2024 Refer.MD: Chikis, [facility] Exam Time: 8:46:00 AM Study Type:[facility] Height: 74 in Weight: 242 lb BSA: 2.36 m2 Age: 10 1955,69Y Sex: M Sonogrphr: Am Pat. Stat.:Outpatient Reason for Study:Ascending aorta dilatation Procedures: Study performed at [place], [place] and interpreted by [facility]. 2D, M-mode, Doppler, Color Flow, Myocardial contrast was used to enhance endocardial definition. ++++++++++++++++++++++++++++++++++++ SUMMARY: ++++++++++++++++++++++++++++++++++++ The left ventricular size is normal. The ejection fraction is >55%. Wall motion appears normal in all segments. The right ventricle size is normal. The right ventricular function is normal. No evidence of pericardial effusion. Ascending aorta is dilated. The proximal ascending aorta measures 4.1cm. There is trace mitral regurgitation. There is trace tricuspid regurgitation. ++++++++++++++++++++++++++++++++++++ FINDINGS: ++++++++++++++++++++++++++++++++++++ LV: The left ventricular size is normal. Left ventricular function is normal. The ejection fraction is >55%. Diastolic filling is normal for age. WM: Wall motion appears normal in all segments. RV: The right ventricle size is normal. The right ventricular function is normal. LA: Left atrial size is normal. RA: The right atrial size is normal. DIONICIO: No evidence of pericardial effusion. AO: Ascending aorta is dilated. The proximal ascending aorta measures 4.1cm. SVn: Inferior vena cava is not assessable. AV: The aortic valve is trileaflet. There is no aortic stenosis. There is no evidence of aortic regurgitation. MV: The mitral valve is structurally normal. There is trace mitral regurgitation. PV: Pulmonic valve not well visualized. TV: The tricuspid valve appears structurally normal. There is trace tricuspid regurgitation. <Electronic Signature> 09/26/2024 06:58 AM Cassidy Alarcon M.D. Procedure Note Cassidy Alarcon MD - 09/26/2024 Echocardiography Report Pat.Name: Tarik Blevins m Pat.ID: [id number] .Date: 09/23/2024 Refer.MD: Chikis, [facility] Exam Time: 8:46:00 AM Study Type:[facility] Height: 74 in Weight: 242 lb BSA: 2.36 m2 Age: 10 1955,69Y Sex: M Sonogrphr: Am Pat. Stat.:Outpatient Reason for Study:Ascending aorta dilatation Procedures: Study performed at [place], [place] and interpreted by [facility]. 2D, M-mode, Doppler, Color Flow, Myocardial contrast was used to enhance endocardial definition. ++++++++++++++++++++++++++++++++++++ SUMMARY: ++++++++++++++++++++++++++++++++++++ The left ventricular size is normal. The ejection fraction is >55%. Wall motion appears normal in all segments. The right ventricle size is normal. The right ventricular function is normal. No evidence of pericardial effusion. Ascending aorta is dilated. The proximal ascending aorta measures 4.1cm. There is trace mitral regurgitation. There is trace tricuspid regurgitation. ++++++++++++++++++++++++++++++++++++ FINDINGS: ++++++++++++++++++++++++++++++++++++ LV: The left ventricular size is normal. Left ventricular function is normal. The ejection fraction is >55%. Diastolic filling is normal for age. WM: Wall motion appears normal in all segments. RV: The right ventricle size is normal. The right ventricular function is normal. LA: Left atrial size is normal. RA: The right atrial size is normal. DIONICIO: No evidence of pericardial effusion. AO: Ascending aorta is dilated. The proximal ascending aorta measures 4.1cm. SVn: Inferior vena cava is not assessable. AV: The aortic valve is trileaflet. There is no aortic stenosis. There is no evidence of aortic regurgitation. MV: The mitral valve is structurally normal. There is trace mitral regurgitation. PV: Pulmonic valve not well visualized. TV: The tricuspid valve appears structurally normal. There is trace tricuspid regurgitation. <Electronic Signature> 09/26/2024 06:58 AM Cassidy Alarcon M.D. Cassidy Alarcon MD ECHO Final Result from Last 3 Months Insurance [facility] Advance Directives * Full Code (Latest Code Status on File) Date Activated Date Inactivated Comments 04/16/2022 3:58 PM 04/18/2022 8:15 PM Care Teams Operating Cost Clerk Relationship Specialty Start Date End Date Cooper Romero DO [address] [place] [address] PCP - General FAMILY PRACTICE 04/12/22 Cassidy Alarcon MD [address] [place] [address] Consulting Physician CARDIOVASCULAR DISEASE 12/13/23
--- OUTSIDE RECORDS SUMMARY | 2024-10-07 07:17 | XMS_ITS | Encounter Summary ---
Author Organization [facility] Address [facility] [place] [address] Care Team Providers Care Senior Vice President Name Role Phone Cooper Romero DO Primary Care Provider [phone] Cassidy Alarcon MD Unavailable Encounter Details Date Type Department Care Team (Late st Contact Info) Description 04/20/2022 Hospital Follow-up Call [facility] [address] [place] [address] Acacia Hatfield, RN Social History Tobacco Use Types Packs/Day Years Used Date Smoking Tobacco: Never Smokeless Tobacco: Never Alcohol Use Standard Drinks/Week Comments Not Currently 0 (1 standard drink = 0.6 oz pur e alcohol) Sex and Gender Information Value Date Recorded Sex Assigned at Not on file Legal Sex Male 12:23 AM CDT Gender Identity Not on file Sexual Orientation Not on file COVID-19 Exposure Response Date Recorded In the last 10 days, have yo u been in contact with someone who was confirmed or suspected to have Coronavirus/COVID-19? No / Unsure 04/16/2022 4:39 PM CDT documented as of this encounter Functional Status * RETIRED Are you deaf or do you have serious difficulty hearing Answer Date of Assessment Author Status No 04/16/2022 4:35 PM CDT Activ e * RETIRED Are you blind or do you have serious difficulty seeing, even when wearing glasses? Answer Date of Assessment Author Status No 04/16/2022 4:35 PM CDT Activ e * Do you have serious difficulty walking or climbing stairs? Answer Date of Assessment Author Status No 04/16/2022 4:35 PM Cecilia Mckenna RN Active * Do you have difficulty dressing or bathing? Answer Date of Assessment Author Status No 04/16/2022 4:35 PM Cecilia Mckenna RN Active * Because of a physical, mental, or emotional condition, do you have difficulty doing errands alone such as visiting a doctor's office or shopping? Answer Date of Assessment Author Status No 04/16/2022 4:35 PM Cecilia Mckenna RN Active documented as of this encounter Mental Status * Because of a physical, mental, or emotional condition, do you have serious difficulty concentrating, remembering, or making decisions? Answer Entry Date Author Status No 04/16/2022 4:35 PM Cecilia Mckenna RN Active documented in this encounter Plan of Treatment Upcoming Encounters Date Type Department Care Team (Late st Contact Info) Description 06/29/2025 2:45 PM SENIOR PRODUCTION PLANNER Office Visit [facility] [place] [address] Cassidy Alarcon MD [address] [place] [address] documented as of this encounter Goals Goal Patient Goal Type Associated Problems Recent Progress Patient-Stated? Author Patient will return to prior living situation and remain independent in ADLs upon discharge from hospital Lifestyle Yes Barbara Matthews, RN Note: He will going home and if help is needed he has family near by documented as of this encounter Visit Diagnoses Not on filedocumented in this encounter Care Teams Senior Vice President Relationship Specialty Start Date End Date Cooper Romero DO [address] [place] [address] PCP - General FAMILY PRACTICE 04/12/22 Cassidy Alarcon MD [address] [place] [address] Consulting Physician CARDIOVASCULAR DISEASE 12/13/23 documented as of this encounter
[2024-10-07 07:28] LABS: Basophils Absolute Auto 0.04 K/mm3 (0.00-0.10); Basophils Percent Auto 0.3 % (0.0-1.0); Eosinophils Absolute Auto 0.09 K/mm3 (0.02-0.50); Eosinophils Percent Auto 0.6 % (1.0-6.0); Hematocrit 49.4 % (37.0-46.0); Hemoglobin 16.1 g/dL (12.4-15.3); Immature Granulocyte Absolute 0.06 K/mm3 (0.00-0.00); Immature Granulocyte Percent A 0.4 % (0.0-0.0); Lymphocytes Absolute Auto 3.03 K/mm3 (1.10-4.50); Lymphocytes Percent Auto 21.1 % (18.0-42.0); Mean Corpuscular HGB Conc 32.6 g/dL (32-36); Mean Corpuscular Hemoglobin 28.8 pg (27.0-31.0); Mean Corpuscular Volume 88.2 fL (78.0-102.0); Mean Platelet Volume 9.1 fl (8.7-11.0); Monocytes Absolute Auto 0.84 K/mm3 (0.10-0.90); Monocytes Percent Auto 5.8 % (2.0-11.0); Neutrophils Absolute Auto 10.32 K/mm3 (1.70-7.20); Neutrophils Percent Auto 71.8 % (50.0-70.0); Platelet Count Result 343 K/mm3 (150-420); Red Cell Distribution Width 13.2 % (11.6-14.4); White Blood Count 14.4 K/mm3 (4.8-10.8)
[2024-10-07 08:23] LABS: Alanine Aminotransferase 27 U/L (16-63); Albumin Level 3.9 g/dL (3.4-5.0); Alkaline Phosphatase 99 U/L (46-116); Anion Gap 11 mmol/L (4-12); Aspartate Amino Transferase 12 U/L (15-37); Bilirubin,Total 0.4 mg/dL (0.00-1.00); Blood Urea Nitrogen 11 mg/dL (7-18); Calcium 9.5 mg/dL (8.5-10.1); Carbon Dioxide 28 mmol/L (21-32); Chloride 104 mmol/L (98-108); Cholesterol 190 mg/dL (0-200); Estimated Glomerular Filt Rate 57; Glucose 96 mg/dL (70-99); HDL Direct 58 mg/dL (40-60); LDL Cholesterol Calculated 95 mg/dL (<130); Osmolality Calculated 295 mOsm/kg (285-295); Potassium 4.3 mmol/L (3.5-5.1); Sodium 143 mmol/L (136-145); Total Protein 7.3 g/dL (6.4-8.2); Triglycerides 185 mg/dL (0-150)
[2024-10-07 08:27] LABS: Thyroid Stimulating Hormone Reflex 1.15 u/IU/mL (0.36-3.74)
== END 2024-10-07 07:15 | disposition home or self-care (01) ==
LOC: CHSLAB 07:14
PROVIDERS: PCP Family Medicine; Visit Provider Family Medicine
DX: E03.9 Hypothyroidism, unspecified (principal); E78.5 Hyperlipidemia, unspecified
CPT/HCPCS: 36415; 80053; 80061; 84443; 85025

== ENCOUNTER 2024-10-07 11:58 | Outpatient (NON) | payer MEDICARE, SELFPAY ==
--- OUTSIDE RECORDS SUMMARY | 2024-10-07 12:03 | XMS_ITS | Encounter Summary ---
Author Organization [facility] Address [facility] [place] [address] Care Team Providers Care Rail Car Mechanic Name Role Phone Cooper Romero DO Primary Care Provider [phone] Cassidy Alarcon MD Unavailable Encounter Details Date Type Department Care Team (Late st Contact Info) Description 04/20/2022 Hospital Follow-up Call [facility] Unit [address] [place] [address] Acacia Hatfield, RN Social History [...] st Contact Info) Description 06/29/2025 2:45 PM LEARNING AND DEVELOPMENT ASSOCIATE Office Visit [facility] [place] [address] Cassidy Alarcon MD [address] [place] [address] documented as of this encounter [...] on filedocumented in this encounter Care Teams Rail Car Mechanic Relationship Specialty Start Date End Date Cooper Romero DO [address] [place] [address] PCP - General FAMILY PRACTICE 04/12/22 Cassidy Alarcon MD [address] [place] [address] Consulting Physician CARDIOVASCULAR DISEASE 12/13/23 documented as of this encounter
--- OUTSIDE RECORDS SUMMARY | 2024-10-07 12:04 | XMS_ITS | Continuity of Care Document ---
Author Organization [facility] Address [address] [place] [address] Phone Care Team Providers Care Ged Preparation Teacher Name Role Phone Shade Barr MD Unavailable Unavailable Procedures Procedure Date Special Narrative Report Work/medical disability examination Jacy X-ray exam of shoulder, complete 2005 Record Review Advance Directives Directive Yes / No Effective Date File Name No Information Encounters Encounter Description Practice Location Reason(s) For Visit Diagnoses Date Provider Providers Copied on Encounter [facility], [address] [place] [address], [address] [place] [address], [phone] [facility] No Information 7 6 Momo [address]re. [address] [place] [address], [id number] , . tel: [phone] Work/medical disability examination Jacy [facility], [address] [place] [address], [id number], tel:[phone] [facility] No Information [address]. [address] [place] [address], [id number] , . tel: [phone] Family History Family Member Type Diagnosis Age At Onset No Information Payers Payer name Insurance type Covered constitution party ID Authoriza tijanna(s) [employer] [id number] Social History Type Description Quantity Date Captured [...]
--- OUTSIDE RECORDS SUMMARY | 2024-10-07 12:04 | XMS_ITS | Clinical Summary ---
Author Organization [facility] Address [facility] [place] [address] Care Team Providers Care Cafeteria Team Leader Name Role Phone Cooper Romero DO Primary Care Provider [phone] Cassidy Alarcon MD Unavailable Allergies No known [...] NSTEMI (non-ST elevated myoc ardial infarction) (CMS/HCC [facility]/HCC) 04/16/2022 Essential (primary) hypertension History of angioedema Hyperlipidemia, unspecified hyperlipidemia type Encounters Date Type Department Care Team Description 09/23/2024 8:13 AM DIGITIZER - 09/23/2024 11:59 PM DIGITIZER Hospital Encounter [facility] [address] [place] [address] Cassidy Alarcon MD Discharge Disposition: Home or [...] Comments Blood Pressure 138/82 06/23/2024 3:02 PM DIGITIZER Pulse 60 06/23/2024 3:02 PM DIGITIZER Temperature 36.3 C (97.3 F) 04/18/2022 8:02 AM CDT Respiratory Rate 14 06/23/2024 3:02 PM DIGITIZER Oxygen Saturation 99% 06/23/2024 3:02 PM DIGITIZER Inhaled Oxygen Concentration - - Weight 111.1 kg (245 lb) 06/23/2024 3:02 PM DIGITIZER Height 188 cm (6' 2 ) 06/23/2024 3:02 PM DIGITIZER Body Mass Index 31.46 06/23/2024 3:02 PM DIGITIZER Plan of Treatment Upcoming Encounters Date Type Department Care Team (Late st Contact Info) Description 06/29/2025 2:45 PM DIGITIZER Office Visit [facility] [place] [address] Cassidy Alarcon MD [address] [place] [address] Health Maintenance Due Date Last Done Comments [...] ECHOCARDIOGRAM W CON Routine 09/23/2024 9:25 AM DIGITIZER Ascending aorta dilatation (CMS/HCC) from Last 3 Months Results * USE ECHOCARDIOGRAM W CON (09/23/2024 9:25 AM DIGITIZER) Anatomical Region Laterality Modality NA Ultrasound 09/23/2024 8:46 AM DIGITIZER Narrative 09/26/2024 6:58 AM DIGITIZER Echocardiography Report Pat.Name: Tarik Blevins Pat.ID: [id number] .Date: 09/23/2024 Refer.MD: Chikis, [facility] Exam Time: 8:46:00 AM Study Type:[facility] Height: 74 in Weight: 242 lb BSA: 2.36 m2 Age: 10 1955,69Y Sex: M Sonogrphr: Am Pat. Stat.:Outpatient Reason for Study:Ascending aorta dilatation Procedures: Study performed at [place], [place] and interpreted by [facility]. 2D, M-mode, Doppler, Color Flow, [...] Echocardiography Report Pat.Name: Tarik Blevins m Pat.ID: [id number] .Date: 09/23/2024 Refer.MD: Chikis, [facility] Exam Time: 8:46:00 AM Study Type:[facility] Height: 74 in Weight: 242 lb BSA: 2.36 m2 Age: 10 1955,69Y Sex: M Sonogrphr: Am Pat. Stat.:Outpatient Reason for Study:Ascending aorta dilatation Procedures: Study performed at [place], [place] and interpreted by [facility]. 2D, M-mode, Doppler, Color Flow, [...] Final Result from Last 3 Months Insurance [facility] Advance Directives * Full Code (Latest Code Status on File) Date Activated Date Inactivated Comments 04/16/2022 3:58 PM 04/18/2022 8:15 PM Care Teams Cafeteria Team Leader Relationship Specialty Start Date End Date Cooper Romero DO [address] [place] [address] PCP - General FAMILY PRACTICE 04/12/22 Cassidy Alarcon MD [address] [place] [address] Consulting Physician CARDIOVASCULAR DISEASE 12/13/23
== END 2024-10-07 11:59 | disposition home or self-care (01) ==
LOC: CHSLAB 12:01
PROVIDERS: PCP Family Medicine; Visit Provider Family Medicine
DX: R23.8 Other skin changes (principal)
CPT/HCPCS: 88305